=== PATIENT | male | born 1960 | race Caucasian/White ===

== ENCOUNTER 2019-10-15 05:01 | Observation (INO) ==
--- NOTE | 2019-10-09 14:27 | Anesthesiology Consultation ---
Date of Service October 09, 2019 Assessment & Plan (1) Encounter for pre-operative examination: PT REPORTED H/O "ANGER/AGGRESSION" WITH ANESTHESIA. COVID Status: As of 10/07 nurse assessment, patient denies travel to endemic area, known exposure/sick contacts, or symptoms of coronavirus. Pt lives in [facility] and travels to [facility] for shopping. Traveled to [facility] for [facility] 1 wk ago for work. Will be tested for Covid on 10/09. Chart Review Chart Review: Acceptable Risk for Surgery and Patient NOT seen in Pre Admission Testing History Surgery Operation Date: 10/15/19 09:00 Proposed Procedures p Left Total Hip Arthroplasty - Lc Agarwal MD Height/Weight Height: 6 ft 1 in Weight: 113.398 kg Allergies Allergy/AdvReac Type Severity Reaction Status Date / Time No Known Allergies Allergy Verified 10/08/19 10:07 Medications Home Medications Medication Instructions Recorded Confirmed Last Taken Fiber (psyllium husk) 1 cap PO QAM 10/08/19 10/08/19 Unknown atenolol 50 mg PO QAM 10/08/19 10/08/19 Unknown baclofen 10 mg PO TID PRN 10/08/19 10/08/19 Unknown fenofibrate micronized 200 mg PO QAM 10/08/19 10/08/19 Unknown omeprazole 40 mg PO QAM 10/08/19 10/08/19 Unknown oxycodone-acetaminophen [Percocet] 1 tab PO Q6H PRN 10/08/19 10/08/19 Unknown Past Medical History Medical History Constipated GERD (gastroesophageal reflux disease) History of colon polyps History of DVT (deep vein thrombosis) LLE - post op - 20 years ago - treated w/ AC History of kidney stones [place] (hard of hearing) HTN (hypertension) Hyperlipemia Osteoarthritis TMJ click Past Surgical History Surgical History History of anesthesia reaction anger, aggresssion History of ankle surgery Rt History of appendectomy History of arthroscopy of right shoulder History of bone graft History of cardiac catheterization 15 years ago - [facility] - no stents History of cervical spinal surgery restricted ROM rt side; hardware in place History of cholecystectomy History of colonoscopy History of cystoscopy w/ stone extraction History of esophagogastroduodenoscopy (EGD) History of lithotripsy History of sinus surgery History of tooth extraction Social History Smoking Status: Never smoker tobacco type: smokeless tobacco Do You Dip or Chew Tobacco: Yes (1 can per day) Hx Alcohol Use: Yes alcohol intake frequency: holidays/special occasions only Hx Substance Use: Yes substance use type: marijuana Last Used Substance Other:: 10/06 Testing Laboratory Results Blood Type B Positive 10/06/19 10:27 Antibody Screen NEGATIVE 10/06/19 10:27 10/06/19 WBC: 8.55 H/H: 14.8/42.1 PLATELETS: 175 SODIUM: 142 POTASSIUM: 3.9 CHLORIDE: 107 CO2: 31 BUN: 9 CREATININE: 1.02 GLUCOSE: 80 PT: 11 PTT: 26.3 INR: 1.0 UA: negative Electrocardiogram Date: 10/06/19 Findings: + SB @ (53bpm) Chest X-Ray Date: 10/06/19 Findings: + NAD
--- NOTE | 2019-10-13 07:45 | History & Physical Report ---
Date of Service October 13, 2019 Assessment & Plan (1) Degenerative joint disease of left hip: Approximately twenty minutes were spent with the patient reviewing operative procedure, postoperative recovery, physical therapy requirements and medication use. Postoperative prescriptions for Percocet and Coumadin will be provided at discharge from the hospital. Anticipate discharge to home with home health services. Preoperative lab work, EKG, and chest x-ray have been ordered. Medical clearance has been requested from his primary care office at [facility]. The patient is aware of the COVID-19 risks associated with surgery. He is currently asymptomatic of any COVID-19 symptoms. The patient will be scheduled for COVID nasal swab testing for Sunday and results will be made available to him prior to surgery. He already has access to a walker and cane. History of Present Illness Chief Complaint: Left hip pain Primary Care Provider: NO PCP This 59-year-old white male presents today with a longstanding history of bilateral hip pain, left greater than right for several years. Pain has become worse with time. He is scheduled to undergo a left hip total hip arthroplasty on 10/15/2019. Pain is affecting his ADLs. He has difficulty with standing as well as walking. No numbness or tingling. He notes he walks with a significant limp. There is night pain. No specific trauma that he can recall. No difficulty with bowel or bladder function. Allergies Allergy/AdvReac Type Severity Reaction Status Date / Time No Known Allergies Allergy Verified 10/08/19 10:07 Home Medications Home Medications Medication Instructions Recorded Confirmed Type Fiber (psyllium husk) 1 cap PO QAM 10/08/19 10/08/19 History atenolol 50 mg PO QAM 10/08/19 10/08/19 History baclofen 10 mg PO TID PRN 10/08/19 10/08/19 History fenofibrate micronized 200 mg PO QAM 10/08/19 10/08/19 History omeprazole 40 mg PO QAM 10/08/19 10/08/19 History oxycodone-acetaminophen [Percocet] 1 tab PO Q6H PRN 10/08/19 10/08/19 History Past Med/Surg History Medical History Constipated GERD (gastroesophageal reflux disease) History of colon polyps History of DVT (deep vein thrombosis) LLE - post op - 20 years ago - treated w/ AC History of kidney stones [place] (hard of hearing) HTN (hypertension) Hyperlipemia Osteoarthritis TMJ click Surgical History History of anesthesia reaction anger, aggresssion History of ankle surgery Rt History of appendectomy History of arthroscopy of right shoulder History of bone graft History of cardiac catheterization 15 years ago - [facility] - no stents History of cervical spinal surgery restricted ROM rt side; hardware in place History of cholecystectomy History of colonoscopy History of cystoscopy w/ stone extraction History of esophagogastroduodenoscopy (EGD) History of lithotripsy History of sinus surgery History of tooth extraction Social History Preferred Language: Khmer Communication Ability: Effective Railroad Carman Required: No Beliefs That Will Affect Care: None Current Living Situation: Spouse Feels Safe at Home: Yes Smoking Status: Never smoker Tobacco Type: smokeless tobacco ; Second Hand Exposure: Yes (previous exposure in the work place) ; Hx Alcohol Use: Yes Hx Substance Use: Yes substance use type: marijuana Review of Systems Review of Systems: All systems reviewed & are unremarkable except as noted in HPI & below Physical Exam Physical Exam: Vitals: Temperature 36.4 oral, BP 140/76, pulse 59, O2 sat 98% on room air, height 182 cm, weight 113 kilograms, BMI 34.1. General: Well-developed, well-nourished middle-aged white male in no acute distress. Obvious discomfort. Sitting on a bed. Alert and oriented. Looks older than his stated age. Skin: Warm and dry with good turgor. No rashes or lesions. No ecchymosis or erythema. No edema. HEENT: Normocephalic, atraumatic. Eyes: PERRLA, EOMI. Oropharynx and nares deferred due to COVID precautions. The patient is wearing a mask. Heart: RRR, no MGR. Lungs: Clear to auscultation bilaterally, no crackles, rhonchi or wheezing. Good air movement. Abdomen: Obese, bowel sounds present x4, soft, nontender. No organomegaly. No masses. Musculoskeletal: Left hip evaluation reveals no obvious asymmetry or deformity. He does get frequent spasm into his quadriceps musculature. He has limited range of motion of the hip. Flexion only to 90 degrees, external rotation of 20 degrees, internal rotation of 5 degrees, all limited by pain. No discomfort with palpation over his IT band or greater trochanter. The patient walks with a significantly antalgic gait. Left knee examination is benign. Good range of motion. No significant discomfort with palpation over the medial or lateral joint lines. Neurologic: Gross sensation is intact across both lower extremities by soft touch. Peripheral pulses are 2+. Results & Data Results & Data ([facility]) Diagnostic Findings Radiographic imaging obtained today shows end-stage DJD of the left hip. He has [id number] with subchondral sclerosis and subchondral cysts. Right hip has arthritic change with a Cam lesion, though not as severe as the left.
[2019-10-15] MEDS ORDERED: LR 60ML/HR IV SCH (06:00)
[2019-10-15] MEDS ORDERED: LR 500ML BOLUS, THEN 15ML/HR IV SCH (06:00)
[2019-10-15] MEDS ORDERED: TRANEXAMIC ACID 1,000 MG x 1 **For Topical Use TOP SCH (06:00)
[2019-10-15] MEDS ORDERED: ROPIVACAINE 0.5% HCL/PF 150 MG, BUPIVACAINE 0.5% MPF 30 ML, EPINEPHrine 0.15 MG, Ketoro... INFIL SCH (06:00)
[2019-10-15] MEDS ORDERED: CEFAZOLIN 2000MG 2,000 MG/15 ML SYR IV SCH (06:00)
[2019-10-15] MEDS ORDERED: BUPIVACAINE 0.5 % 5 MG/1 ML PF 10ML VIAL ONE (06:14)
--- NOTE | 2019-10-15 06:22 | History & Physical Bridge Note ---
Date of Service October 15, 2019 History & Physical Bridge Note I have examined the patient, reviewed the History & Physical and in the interval since the performance of the History & Physical I have noted the following changes of clinical significance: consent obtained/covid screening negative/site marked.no changes noted
[2019-10-15] MEDS ORDERED: ORTHO JOINT ANESTHETIC ONE (06:33)
[2019-10-15] MEDS ORDERED: MIDAZOLAM HCL 1 MG/ML 2ML VIAL ONE ×2 (06:38→07:02)
[2019-10-15] MEDS ORDERED: PROPOFOL IV EMULSION 10 MG/ML 20 ML VIAL IV ONE ×2 (06:38→07:36)
[2019-10-15] MEDS ORDERED: fentaNYL citrate 100 MCG/2 ML VIAL ONE (06:38)
[2019-10-15] MEDS ORDERED: LIDOCAINE HCL 2% 2 ML VIAL/AMP(20MG/ML) INFIL ONE (06:38)
[2019-10-15] MEDS ORDERED: ONDANSETRON INJ 2 MG/ML 2 ML VIAL ONE (07:10)
[2019-10-15] MEDS ORDERED: ePHEDrine sulfate 50 MG/ML SYR ONE (07:37)
--- NOTE | 2019-10-15 08:24 | Post Operative Brief Note ---
Immediate Post Op Note v1 Date of Surgery October 15, 2019 Pre & Post Diagnosis Operation Date: 10/15/19 07:00 Pre-Op Diagnosis: Left Hip Degenerative Joint Disease Post-Op Diagnosis: Left Hip Degenerative Joint Disease I identified the patient and participated in the time-out.: Yes Procedure Operation Date: 10/15/19 07:00 Actual Procedures p Left Total Hip Arthroplasty--Uncemented(Left) - Lc Agarwal MD Surgeon Lc Agarwal MD Business Analytics Manager [facility] Est[facility] Blood Loss 175 Findings Consistent with Post-Op Diagnosis
--- NOTE | 2019-10-15 08:33 | Operative Report ---
Post Operative Report Pre & Post Diagnosis Operation Date: 10/15/19 07:00 Pre-Op Diagnosis: Left Hip Degenerative Joint Disease Post-Op Diagnosis: Left Hip Degenerative Joint Disease I identified the patient and participated in the time-out.: Yes Procedure Operation Date: 10/15/19 07:00 Actual Procedures p Left Total Hip Arthroplasty--Uncemented(Left) - Lc Agarwal MD Surgeon VAZQUEZ Agarwal MD Tobacco Sweeper krishna Estimated Blood Loss 175 Findings Consistent with Post-Op Diagnosis Specimens see operative report Drains none Complications none Disposition Accompanied Patient To Recovery: Yes Disposition: Recovery Room Indications This 59-year-old white male presented to the office with complaints of intractable left hip pain. He had tried conservative care measures without improvement. Patient elected to proceed with surgical intervention after being educated about potential risks and outcomes. Preoperative imaging was obtained. Description of Procedure Patient was administered a spinal anesthetic and then taken to the operating room where he was given sedation. He was prepped and draped in the usual st erile fashion. Please see Dr. Agarwal's operative report for specifics of the procedure. I was present for the entire case from initial patient positioning through final wound closure. Assistance was provided in tissue retraction, hemostasis, trial implant placement, final implant placement, and final wound closure. Patient was taken to the recovery room in satisfactory condition. I attest to the content of the Intraoperative Record and any orders documented therein. Any exceptions are noted below.
--- NOTE | 2019-10-15 09:10 | XRay Report ---
XR pelvis 1-2V routine HISTORY: 59 years-old Male post op in pacu left hip total joint arthroplasty COMPARISON: Pelvis radiograph 10/06/2019 TECHNIQUE: AP view of the pelvis FINDINGS: Left hip total joint arthroplasty demonstrates satisfactory alignment. No acute fracture, dislocation or opaque foreign body. Lateral skin argelia. Expected postsurgical soft tissue swelling and deep ti ssue air. Surgical clips project over the scrotum. Mild to moderate right hip osteoarthritis. IMPRESSION: Satisfactory alignment of the left hip total joint arthroplasty. ACT 112: Negative or not required by law. The above report was generated using voice recognition software. It may contain grammatical, syntax o r spelling errors. Electronically signed by: Michel Jacques M.D. 10/15/2019 9:08 AM
--- NOTE | 2019-10-15 09:19 | Operative Report (OR) ---
DATE OF OPERATION: 10/15/2019 SURGEON: Lc Agarwal MD. TAP AND DIE MAKER TECHNICIAN: Rasheed Husain PA-C. No resident or fellow available. PREOPERATIVE DIAGNOSIS: Osteoarthritis, left hip. POSTOPERATIVE DIAGNOSIS: Same. OPERATION PERFORMED: Noncemented left total hip replacement. PERIOPERATIVE SITUATION: Medically cleared male with intractable hip pain, who has x-rays revealing severe disease. Wants to proceed with surgical treatment. Consent obtained. All risks and benefits identified. He states he understands. SUMMARY OF IMPLANTS: Size 50 acetabular shell sector cup hole eliminator, 6.5 x 20 screw, 32 x 50+4 10 degree lipped liner, 7 high offset Tri-Lock 32+9 ceramic head. ESTIMATED BLOOD LOSS: 175 mL PATHOLOGY: Pending on bone. DVT prophylaxis with Eliquis based on history of DVT. DESCRIPTION OF PROCEDURE: The patient appropriately identified, site verified, consent verified. Antibiotics confirmed as being given. The left lower extremity was prepped and draped in usual routine fashion with the patient in the right lateral decubitus position. A posterior approach to the hip was made. Sharp dissection carried through skin and blunt dissection down to the fascia. IT band then identified, split and extended up into the gluteus juancho. A Charnley retractor was then placed, with care to protect the sciatic nerve. Short external rotators were released and preserved the capsule was T'd and preserved. The hip was dislocated. Femoral neck was resected. There was marked deformity to the head, marked deformity of the labrum. Marked deformity to the acetabulum, marked osteophytes. These were all resected and debrided and serial reaming carried up to a 50 to a 50 cup impacted into appropriate inclination and anteversion. Osteophytes resected. A +4 10 degree lipped liner seated as it had given the most stability. The femur was then flexed and internally rotated. The box cut, canal finder, lateralizing rasp, and serial broaching up to a size 7 was carried out. A +9 head gave the best leg lengths and stability. All trial implants were then removed. The wound was irrigated with Betadine, Pulsavac, hole eliminator seated, permanent liner seated, permanent head and stem seated. The hip reduced. It was stable in all planes with the exception of flexion to 90 degrees, internal rotation to 40 degrees and it started to slide there. Otherwise, it was perfectly stable. Postural indiscretion should not be obtained or done. As a result, it was deemed acceptable and in excellent position. Leg lengths were excellent. The wound irrigated with Betadine. The short external rotators and capsule closed with #2 Vicryl. The IT band fascia and gluteus juancho fascia with #2 Vicryl, the subcutaneous layer with 2-0 Vicryl and the skin with stainless steel clips. Appropriate dressing applied. The patient transferred to recovery room in satisfactory condition having tolerated the procedure well. I attest to the content of the Intraoperative Record and any orders documented therein. Any exception s are noted below.
[2019-10-15] MEDS ORDERED: BACLOFEN 10 MG TAB PO PRN (09:52)
[2019-10-15] MEDS ORDERED: METOCLOPRAMIDE HCL INJ 5 MG/ML 2 ML VIAL IV PRN (09:52)
[2019-10-15] MEDS ORDERED: ALUMINUM/MAGNESIUM SUSP 30 ML UDC PO PRN (09:52)
[2019-10-15] MEDS ORDERED: SODIUM CHLORIDE 0.9% 1000ML 1,000 ML IV SCH (09:52)
[2019-10-15] MEDS ORDERED: NALOXONE HCL 0.4 MG/1 ML VIAL/CARP IV PRN (09:52)
[2019-10-15] MEDS ORDERED: bisacodyL 10 MG SUPP PR PRN (09:52)
[2019-10-15] MEDS ORDERED: TAMSULOSIN HCL 0.4 MG CAP PO PRN (09:52)
[2019-10-15] MEDS ORDERED: DiphenhydrAMINE HCL 50 MG/ML VIAL IV PRN (09:52)
[2019-10-15] MEDS ORDERED: MAGNESIUM HYDROXIDE SUSP 30 ML UDC PO PRN (09:52)
--- NOTE | 2019-10-15 11:12 | Progress Notes ---
DATE: 10/15/2019 SUBJECTIVE: Postop check status post left total hip replacement. The patient is doing well, sitting up in bed, has no chest pain, shortness of breath, fever, chills, nausea, vomiting or headache. OBJECTIVE: Vital signs are stable. He is afebrile. Neurovascular check is still limited by the spinal, starting to roll his legs. Wound dressing clean, dry and intact. Hip is located. X-rays reveal excellent implant positioning. ASSESSMENT: Doing well. Continue with postoperative care pathway, mobilize today and prepare for discharge tomorrow.
--- NOTE | 2019-10-15 11:12 | Discharge Summary (DS) ---
DATE OF DISCHARGE: 10/16/2019 CHIEF COMPLAINT: Left hip pain. HISTORY OF PRESENT ILLNESS: Underwent elective left total hip procedure. Had total hip replacement, noncemented. The procedure went uneventfully. Postop x-rays look excellent. At this point in time, he is doing well. PAST MEDICAL HISTORY: Remarkable for constipation, GERD, colonic polyps, DVT with lower extremity surgery 20 years ago, history of kidney stones, hearing loss, hypertension, hyperlipidemia, osteoarthritis, TMJ pain. PAST SURGICAL HISTORY: Remarkable for ankle surgery, appendectomy, right shoulder arthroscopy, cardiac catheterization, spinal surgery, cholecystectomy, colonoscopy, cystoscopies, EGD, lithotripsy, sinus tooth surgery, tooth extraction. SOCIAL HISTORY: Reveals that he is , speaks Bulgarian. Social drinking. He uses marijuana. Smokeless tobacco. Secondhand exposure. REVIEW OF SYSTEMS: Noncontributory. Hospital course to date has been uneventful. ASSESSMENT: Doing well status post left total hip replacement. Continue with postop care pathway. Discharge tomorrow a.m.
[2019-10-15] MEDS: MULTIVITAMIN TAB PO SCH (11:17)
[2019-10-15] MEDS: DOCUSATE SODIUM 100 MG CAP PO SCH ×2 (11:17→21:19)
[2019-10-15] MEDS: ATENOLOL 50 MG TABLET PO SCH (11:19)
--- NOTE | 2019-10-15 12:07 | Anesthesiology Progress Note ---
Date of Service October 15, 2019 Anesthesia Post Procedure Vital Signs Vital Signs: Temp Pulse Pulse Resp BP Pulse Ox 10/15/19 11:34 36.6 C 57 L 16 97/64 L 97 10/15/19 10:28 59 L 16 109/68 98 10/15/19 10:02 36.5 C 67 18 115/71 97 10/15/19 09:35 36.8 C 59 L 16 102/61 95 10/15/19 09:20 36.7 C 61 18 103/69 94 10/15/19 09:10 61 12 104/65 94 10/15/19 09:00 36.7 C 67 14 109/66 96 10/15/19 08:50 62 12 101/63 96 10/15/19 08:40 66 18 97/64 L 100 10/15/19 08:32 37.4 C 60 17 95/63 L 100 10/15/19 05:38 36.7 C 58 L 16 163/92 H 97 Pain Intensity Left Hip: Pain Intensity: 0 Transfer of Care Handoff Completed per policy Notes Mental Status: alert / awake / arousable and participated in evaluation Patient Amnestic to Procedure: Yes Nausea / Vomiting: adequately controlled Pain: adequately controlled Airway Patency, RR, SpO2: stable & adequate BP & HR: stable & adequate Hydration State: stable & adequate Neuraxial Anesthesia: was administered and sensory block is resolving Anesthetic Complications: no major complications apparent
[2019-10-15] MEDS: KETOROLAC 30 MG/ML VIAL IV SCH ×3 (12:24→23:32)
[2019-10-15] MEDS: OXYCODONE HCL IR 5 MG TAB (IMMEDIATE RELEASE) PO PRN ×3 (13:11→21:20)
[2019-10-15] MEDS: ACETAMINOPHEN 500 MG TAB PO SCH ×2 (13:53→21:20)
[2019-10-15] MEDS: CEFAZOLIN 2000MG 2,000 MG/15 ML SYR IV SCH ×2 (14:25→22:13)
[2019-10-15] MEDS: HYDROmorphone INJ 0.5 MG/0.5 ML SYR IV PRN ×2 (14:25→19:05)
[2019-10-15] MEDS: FERROUS GLUCONATE 324 MG TAB PO SCH (16:56)
[2019-10-15] MEDS: ASCORBIC ACID 500 MG TAB PO SCH (16:56)
[2019-10-15] MEDS ORDERED: SENNA 8.6 MG TAB PO SCH (21:00)
[2019-10-15] MEDS: ONDANSETRON INJ 2 MG/ML 2 ML VIAL IV PRN (21:46)
[2019-10-16 05:49] LABS: Basophils # (auto) 0.01 K/uL (0-0.2); Basophils % (auto) 0.1 %; Eosinophils # (auto) 0.05 K/uL (0-0.5); Eosinophils % (auto) 0.6 %; Hematocrit (blood only) 32.2 % (42-52); Hemoglobin 11.1 g/dL (14.0-18.0); Immature Granulocytes # (auto) 0.01 K/uL (0.00-0.02); Immature Granulocytes % (auto) 0.1 %; Lymphocytes % (auto) 13.3 %; Mean Corpuscular Hemoglobin 29.4 pg (25-34); Mean Corpuscular Hgb Conc 34.5 g/dL (32-36); Mean Corpuscular Volume 85.2 fL (80-100); Mean Platelet Volume 10.5 fL (7.4-10.4); Monocytes # (auto) 0.91 K/uL (0.11-0.59); Neutrophils # (auto) 6.16 K/uL (1.4-6.5); Neutrophils % (auto) 74.9 %; Platelet Count 135 K/uL (130-400); RDW Coefficient of Variation 14.1 % (11.5-14.5); RDW Standard Deviation 43.3 fL (36.4-46.3); Red Blood Count 3.78 M/uL (4.7-6.1); White Blood Count 8.24 K/uL (4.8-10.8)
[2019-10-16] MEDS: KETOROLAC 30 MG/ML VIAL IV SCH (05:58)
[2019-10-16] MEDS: ACETAMINOPHEN 500 MG TAB PO SCH (05:58)
[2019-10-16 06:14] LABS: BUN Creatinine Ratio 12.5 (10-20); Calcium 8.4 mg/dl (8.5-10.1); Creatinine Clr Calc Pharmacy 103.9 ml/min; Est GFR (African American) 94.1; Est GFR (Non-African American) 81.2; Potassium 4.2 mmol/L (3.5-5.1)
--- NOTE | 2019-10-16 07:19 | Progress Notes ---
DATE: 10/16/2019 SUBJECTIVE: Postop day #1 status post left total hip replacement. The patient is doing well. He is sitting up in bed. He denies any chest pain, shortness of breath, fever, chills, nausea, vomiting or headache. OBJECTIVE: His vital signs are stable. He is afebrile. Neurovascular check femoral sciatic nerve is normal. Wound dressing clean, dry and intact. Pain is well managed. He is ambulating. He is voiding. He is eating and drinking. ASSESSMENT: Doing well status post left total hip replacement. Discharge today. He will be on Eliquis.
[2019-10-16] MEDS ORDERED: dexAMETHasone 10 MG in SYRINGE 0 ML IV SCH (08:00)
--- NOTE | 2019-10-16 08:18 | Anesthesiology Progress Note ---
Date of Service October 16, 2019 Anesthesia Post Procedure Vital Signs Vital Signs: Temp Pulse Pulse Resp BP BP Pulse Ox 10/16/19 07:49 36.9 C 64 16 101/67 96 10/16/19 04:00 36.9 C 67 14 100/59 L 95 10/15/19 23:21 36.9 C 64 14 103/64 96 10/15/19 15:07 36.9 C 70 17 99/68 L 98 10/15/19 13:56 36.6 C 70 18 115/71 98 10/15/19 12:35 36.6 C 66 18 104/62 98 10/15/19 11:34 36.6 C 57 L 16 97/64 L 97 10/15/19 10:28 59 L 16 109/68 98 10/15/19 10:02 36.5 C 67 18 115/71 97 10/15/19 09:35 36.8 C 59 L 16 102/61 95 10/15/19 09:20 36.7 C 61 18 103/69 94 10/15/19 09:10 61 12 104/65 94 10/15/19 09:00 36.7 C 67 14 109/66 96 10/15/19 08:50 62 12 101/63 96 10/15/19 08:40 66 18 97/64 L 100 10/15/19 08:32 37.4 C 60 17 95/63 L 100 Pain Intensity Left Hip: Pain Intensity: 7 Notes Mental Status: alert / awake / arousable and participated in evaluation Nausea / Vomiting: adequately controlled Pain: adequately controlled Airway Patency, RR, SpO2: stable & adequate BP & HR: stable & adequate Hydration State: stable & adequate Neuraxial Anesthesia: sensory block resolved Anesthetic Complications: no major complications apparent
[2019-10-16] MEDS: MULTIVITAMIN TAB PO SCH (08:28)
[2019-10-16] MEDS: FERROUS GLUCONATE 324 MG TAB PO SCH (08:29)
[2019-10-16] MEDS: DOCUSATE SODIUM 100 MG CAP PO SCH (08:29)
[2019-10-16] MEDS: ASCORBIC ACID 500 MG TAB PO SCH (08:29)
[2019-10-16] MEDS: ATENOLOL 50 MG TABLET PO SCH (08:35)
[2019-10-16] MEDS ORDERED: PANTOprazole 40 MG TAB PO SCH (09:00)
[2019-10-16] MEDS ORDERED: APIXABAN 5 MG TABLET PO SCH (09:00)
--- NOTE | 2019-10-16 09:09 | Orthopedic Progress Note ---
Date of Service October 16, 2019 Assessment & Plan (1) Status post total hip replacement, left: PT/OT today. Start Eliquis this morning and continue twice daily for 6 weeks Anticipate discharge to home with home health services later this morning Dressings were changed today by me. New pressure dressing was applied. Follow-up in the office in 2 weeks for staple removal as scheduled. He may shower but must keep the dressings dry. Continue using his walker when ambulatory. Patient was offered antinausea medication for home, but declined. Prescription for Eliquis has been sent to his pharmacy. He states he already has Percocet at home for chronic pain management. Admission and Anticipated Discharge Date Admission Date: October 15, 2019 Subjective Patient is seen in his room this morning. He is sitting in a chair. States he did well overnight. He currently states he is nauseated and is belching. He did have a light breakfast, but states it is not sitting well. He states he has not had any pain medication since last night. He did not take any antinausea medication this morning. No chest pain, shortness of breath, abdominal pain, or significant hip pain. He has not vomited. Physical therapy is waiting to see him momentarily. Review of Systems Review of Systems: Unchanged from yesterday Physical Exam Physical Exam: General: Well-developed, well-nourished, middle-aged white male, in no acute distress. Sitting in a chair. Alert and oriented. Conversive. States he is a little nauseated and is belching periodically. Skin: Warm and dry with good turgor. Postoperative dressing is in place. Upon removal, he has minimal drainage on his dressings. No active drainage from the wound. Marshes Siding are in place. Musculoskeletal: Patient has supple motion of his left hip. He ambulates well using his walker. Intact motor function for hip flexion, knee extension, knee flexion, and ankle motion. Neurologic: Gross sensation is intact across the left lower extremity by soft touch. Peripheral pulses are 2+. Results & Data ([facility]) Vital Signs (Past 12 Hours) Vital Signs Temp Pulse Pulse Resp BP BP Pulse Ox 10/16/19 08:35 69 106/66 94 10/16/19 07:49 36.9 C 64 16 101/67 96 10/16/19 04:00 36.9 C 67 14 100/59 L 95 10/15/19 23:21 36.9 C 64 14 103/64 96 Laboratory Results H&H obtained this morning is 11.1 and 32.2. WBCs are 8.2. PRP is unremarkable.
[2019-10-16] MEDS: ONDANSETRON INJ 2 MG/ML 2 ML VIAL IV PRN (09:15)
== END 2019-10-16 11:36 | disposition home or self-care (01) ==
LOC: ASU 05:01 → 3E 08:38 → INTOOBSV 08:38

== ENCOUNTER 2020-09-29 06:30 | Observation (INO) ==
--- NOTE | 2020-09-02 11:27 | PAT Medication Instructions ---
Medication Instructions Date of Service September 02, 2020 Home Medications atenolol 50 mg PO QAM baclofen 10 mg PO TID PRN fenofibrate micronized 200 mg PO QAM omeprazole 40 mg PO QAM oxycodone-acetaminophen [Percocet] 1 tab PO Q6H PRN psyllium husk [Fiber (psyllium husk)] 0.12 g PO BID STOP taking 48 hours before surgery fenofibrate micronized 200 mg PO QAM DO NOT take the morning of surgery baclofen 10 mg PO TID PRN psyllium husk [Fiber (psyllium husk)] 0.12 g PO BID Take morning of surgery With a small sip of water, OTHERWISE NOTHING TO EAT OR DRINK AFTER MIDNIGHT: atenolol 50 mg PO QAM omeprazole 40 mg PO QAM oxycodone-acetaminophen [Percocet] 1 tab PO Q6H PRN (okay to take up to 4 hours prior to surgery if needed) Take evening before surgery baclofen 10 mg PO TID PRN (if needed) oxycodone-acetaminophen [Percocet] 1 tab PO Q6H PRN (if needed) psyllium husk [Fiber (psyllium husk)] 0.12 g PO BID Other Notes If you have any questions please call us at [phone] or [phone] or [phone] or [phone]
--- NOTE | 2020-09-06 14:11 | Anesthesiology Consultation ---
Date of Service September 06, 2020 Assessment & Plan (1) Encounter for pre-operative examination: Chart Review Chart Review: Acceptable Risk for Surgery (pending surgeon ordered PCP clearance ) and Patient seen in Pre Admission Testing Awaiting surgeon ordered PCP clearance (pt setting up appt) Per PAT appt on 09/06/20, pt resides in [facility]. Traveled to [place], [place] on 09/01/20 for medical appt. No known Covid positive contacts or Covid related symptoms. Pt denies known Covid infection in the past 90 days. Did have Covid infection 03/17/20 (had sinus pain and drainage- symptoms have since resolved). Preop Covid testing scheduled 09/23/20= will await results. Educated on importance of self quarantining, social distancing and wearing mask in public both for the patient and household contacts. Left TEDDY 10/15/19= Done under SAB at L3-4 with 1 attempt. History Surgery Operation Date: 09/29/20 09:15 Proposed Procedures p Right Total Hip Arthroplasty - Lc Agarwal MD Height/Weight Height: 6 ft 1 in Weight: 122.7 kg Allergies Allergy/AdvReac Type Severity Reaction Status Date / Time No Known Allergies Allergy Verified 09/01/20 08:55 Medications Home Medications Medication Instructions Recorded Confirmed Last Taken atenolol 50 mg PO QAM 10/08/19 09/01/20 10/15/19 02:00 baclofen 10 mg PO TID PRN 10/08/19 09/01/20 10/15/19 02:00 fenofibrate micronized 200 mg PO QAM 10/08/19 09/01/20 10/12/19 07:00 omeprazole 40 mg PO QAM 10/08/19 09/01/20 10/15/19 02:00 oxycodone-acetaminophen [Percocet] 1 tab PO Q6H PRN 10/08/19 09/01/20 10/15/19 02:00 psyllium husk [Fiber (psyllium 0.12 g PO BID 01/07/20 09/01/20 Unknown husk)] Past Medical History Medical History GERD (gastroesophageal reflux disease) Well controlled and stable History of COVID-19 03/17/20- no residual symptoms History of DVT (deep vein thrombosis) LLE - post op - 20 years ago - treated w/ AC x 2-3 years then d/c'ed AC- no issues since that time History of kidney stones No current issues [place] (hard of hearing) No hearing aids HTN (hypertension) Hyperlipemia TMJ click never locked Exercise / Class Metabolic Activity II 4-5 Yardwork/Stairs/Walk up hill (one flight of stairs - no chest pain or SOB ) Past Family History Family History Other No family history of adverse response to anesthesia Past Surgical History Surgical History History of anesthesia reaction anger, aggression > happened x1 History of ankle surgery Rt History of appendectomy History of arthroscopy of right shoulder History of bone graft several yrs ago History of cardiac catheterization 15 years ago - [facility] - no stents History of cervical spinal surgery restricted ROM rt side; hardware in place History of cholecystectomy History of colonoscopy History of cystoscopy w/ stone extraction History of esophagogastroduodenoscopy (EGD) History of left hip replacement 10/15/2019 [facility] History of lithotripsy History of repair of rotator cuff right History of sinus surgery History of tooth extraction Hx of decompression of ulnar nerve bilat Past Anesthesia History No Hx of Anesthesia Complications (with exception to getting angry post op ) and No Family Hx of Anesthesia Complications History of PONV No Hx of PONV and No Hx of Motion Sickness Social History Smoking Status: Never smoker tobacco type: smokeless tobacco Do You Dip or Chew Tobacco: Yes (1 can per 1.5 day) Hx Alcohol Use: No alcohol intake frequency: holidays/special occasions only Hx Substance Use: Yes substance use type: marijuana Substance Use Type Other:: cbd oil > pain Last Used Substance Other:: 11/11/19 Review of Systems Mild cough- secondary to post nasal drip- feels secondary to allergies Patient denies chest pain, shortness of breath, dyspnea on exertion, wheezing, palpitations. No hx of seizures, stroke, [place], apnea/snoring. No hx of blood transfusions Physical Exam Vital Signs VITALS BP 122/72 P 70 TEMP 98.5 SP02 96% RESP 16 Constitutional no acute distress ENMT Mouth: no TMJ clicking Thyromental Distance: > or= 3.5 Finger Breadths (3.5) Mallampati Class: I Missing all teeth Posts in place for full upper and lower implants (will not put implants in for AM of surgery) Neck + limited neck extension (mild ) Limited neck movement to the right with pain Respiratory normal respiratory effort; no respiratory distress Auscultation: lungs clear to auscultation bilaterally; no wheezes Cardiovascular Rate/Rhythm: regular rate and regular rhythm Heart Sounds: no murmur Vessels: no carotid bruit Musculoskeletal Spine: no pain with cervical ROM Extremities: extremities normal to inspection Psychiatric Orientation: alert Testing Laboratory Results 09/06/20 14:29 09/06/20 14:29 PT 10.3 Seconds (9.0-12.0) 09/06/20 14: INR 1.0 (0.9-1.1) 09/06/20 14: APTT 23.4 Seconds (21.0-31.0) 09/06/20 14:29 Urine Color Yellow 09/06/20 14:13 Urine Appearance Clear (Clear) 09/06/20 14:13 Urine pH 7.5 (4.5-7.5) 09/06/20 14:13 Ur Specific Simon 1.014 (1.000-1.030) 09/06/20 14:13 Urine Protein Negative (Negative) 09/06/20 14:13 Urine Glucose (UA) Negative (Negative) 09/06/20 14:13 Urine Ketones Negative (Negative) 09/06/20 14:13 Urine Nitrite Negative (Negative) 09/06/20 14:13 Ur Leukocyte Esterase Negative (Negative) 09/06/20 14:13 Blood Type B Positive 09/06/20 14:29 Antibody Screen NEGATIVE 09/06/20 14:29 Electrocardiogram Date: 09/06/20 Findings: + SB @ (57bpm) Otherwise normal EKG per cardio. Chest X-Ray Date: 09/06/20 Findings: + NAD
--- NOTE | 2020-09-06 14:47 | Electrocardiogram Report ---
Test Reason : Blood Pressure : / mmHG Vent. Rate : 057 BPM Atrial Rate : 057 BPM P-R Int : 192 ms QRS Dur : 096 ms QT Int : 402 ms P-R-T Axes : 027 051 028 degrees QTc Int : 391 ms Sinus bradycardia Otherwise normal ECG When compared with ECG of 06-OCT-2019 11:09, No significant change was found Confirmed by Jameson Ponce ([id number]) on 09/06/2020 2:47:06 PM Referred By: Lc Agarwal Confirmed By:Jameson Ponce
--- NOTE | 2020-09-06 14:55 | XRay Report ---
XR chest Pre-admission PA/Lat HISTORY: 60 years-old Male pat chronic degenerative joint disease of the left hip COMPARISON: Chest radiograph 10/06/2019 TECHNIQUE: PA and lateral views of the chest FINDINGS: Cardiomediastinal and hilar silhouettes are within normal limits. No pneumothorax, pleural effusion, airspace consolidation or overt pulmonary edema. Degenerative changes of the shoulders and spine. Cho lecystectomy. Cervical spinal fusion hardware. IMPRESSION: No acute process. ACT 112: Negative or not required by law. The above report was generated using voice recognition software. It may contain grammatical, syntax o r spelling errors. Electronically signed by: Michel Jacques M.D. 09/06/2020 2:53 PM
[2020-09-06 14:57] LABS: Basophils # (auto) 0.03 K/uL (0-0.2); Basophils % (auto) 0.4 %; Eosinophils # (auto) 0.19 K/uL (0-0.5); Eosinophils % (auto) 2.4 %; Hematocrit (blood only) 41.3 % (42-52); Hemoglobin 14.7 g/dL (14.0-18.0); Immature Granulocytes # (auto) 0.02 K/uL (0.00-0.02); Immature Granulocytes % (auto) 0.3 %; Lymphocytes # (auto) 1.61 K/uL (1.2-3.4); Lymphocytes % (auto) 20.6 %; Mean Corpuscular Hemoglobin 29.6 pg (25-34); Mean Corpuscular Hgb Conc 35.6 g/dL (32-36); Mean Corpuscular Volume 83.3 fL (80-100); Monocytes % (auto) 10.3 %; Neutrophils # (auto) 5.15 K/uL (1.4-6.5); Platelet Count 192 K/uL (130-400); RDW Coefficient of Variation 14.2 % (11.5-14.5); RDW Standard Deviation 43.2 fL (36.4-46.3); Red Blood Count 4.96 M/uL (4.7-6.1)
[2020-09-06 14:59] LABS: Appearance Urine Clear (Clear); Bilirubin Urine Negative (Negative); Blood Urine Negative (Negative); Color Urine Yellow; Glucose Urine UA Negative (Negative); Ketones Urine Negative (Negative); Leukocyte Esterase Urine Negative (Negative); Nitrite Urine Negative (Negative); Protein Urine Negative (Negative); Specific Gravity Urine 1.014 (1.000-1.030); Urobilinogen Urine Negative (Negative); pH Urine 7.5 (4.5-7.5)
[2020-09-06 15:02] LABS: BUN Creatinine Ratio 7.7 (10-20); Calcium 9.4 mg/dl (8.5-10.1); Creatinine Clr Calc Pharmacy 115.1 ml/min; Est GFR (African American) 100.6; Est GFR (Non-African American) 86.8; Potassium 4.3 mmol/L (3.5-5.1)
[2020-09-06 15:20] LABS: Partial Thromboplastin Ratio 0.9; Partial Thromboplastin Time 23.4 Seconds (21.0-31.0); Prothrombin Time 10.3 Seconds (9.0-12.0)
--- NOTE | 2020-09-11 09:13 | History & Physical Report ---
Date of Service September 11, 2020 Assessment & Plan (1) Degenerative joint disease of right hip: Postoperative prescriptions for Percocet and Coumadin will be provided at discharge from the hospital. Anticipate discharge to home with home health services. Preoperative lab work, EKG, and chest x-ray have been reordered. The patient is seeing PAT today. He is aware of the COVID-19 risks associated with surgery. He is currently asymptomatic of any COVID-19 symptoms. He will obtain COVID-19 nasal swab testing 1 week prior to surgery. He has access to a walker and cane. PDMP was checked and no concerning findings were noted. He is aware that he will stay only 1 night in the hospital. History of Present Illness Chief Complaint: Right hip pain Primary Care Provider: Gigi Wolff This 60-year-old male presents for his preoperative history and physical. He is scheduled to undergo a right total hip arthroplasty on 09/29/2020. He was previously scheduled for this procedure on 01/28/2020 as well as 03/24/2020. The first procedure was canceled due to COVID exposure and the second one was canceled due to a rise in COVID cases within the hospital. The patient previously had a left total hip arthroplasty on 10/15/2019 and has done well with it. He elects to proceed with the same on the right. He denies any numbness or tingling in the right leg. Pain is affecting his ADLs. He points to the anterior flexion crease as well as across his iliac crest as the area of discomfort. Pain is worse with standing as well as walking. He walks with a noticeable limp due to his hip pain. He does have night pain. No specific trauma to the hip that he can recall. No difficulty with bowel or bladder function. He does have difficulty with ADLs, and symptoms are worse with weightbearing. Preoperative imaging has been obtained. Allergies Allergy/AdvReac Type Severity Reaction Status Date / Time No Known Allergies Allergy Verified 09/01/20 08:55 Home Medications Medication Instructions Recorded Confirmed Type atenolol 50 mg PO QAM 10/08/19 09/01/20 History baclofen 10 mg PO TID PRN 10/08/19 09/01/20 History fenofibrate micronized 200 mg PO QAM 10/08/19 09/01/20 History omeprazole 40 mg PO QAM 10/08/19 09/01/20 History oxycodone-acetaminophen [Percocet] 1 tab PO Q6H PRN 10/08/19 09/01/20 History psyllium husk [Fiber (psyllium 0.12 g PO BID 01/07/20 09/01/20 History husk)] Past Med/Surg History Medical History GERD (gastroesophageal reflux disease) Well controlled and stable History of COVID-19 03/17/20- no residual symptoms History of DVT (deep vein thrombosis) LLE - post op - 20 years ago - treated w/ AC x 2-3 years then d/c'ed AC- no issues since that time History of kidney stones No current issues [place] (hard of hearing) No hearing aids HTN (hypertension) Hyperlipemia TMJ click never locked Surgical History History of anesthesia reaction anger, aggression > happened x1 History of ankle surgery Rt History of appendectomy History of arthroscopy of right shoulder History of bone graft several yrs ago History of cardiac catheterization 15 years ago - [facility] - no stents History of cervical spinal surgery restricted ROM rt side; hardware in place History of cholecystectomy History of colonoscopy History of cystoscopy w/ stone extraction History of esophagogastroduodenoscopy (EGD) History of left hip replacement 10/15/2019 [facility] History of lithotripsy History of repair of rotator cuff right History of sinus surgery History of tooth extraction Hx of decompression of ulnar nerve bilat Family History (Updated 09/11/20 @ 09:10 by Rasheed Husain PA-C) Other Heart disease No family history of adverse response to anesthesia Stroke Social History Smoking Status: Never smoker Tobacco Type: Smokeless Tobacco (Dip or Chew) Second Hand Exposure: No; Do You Dip or Chew Tobacco: Yes (1 can per 1.5 day); Tobacco Cessation Education Requested by Patient: No Hx Alcohol Use: No Hx Substance Use: Yes Prescribed Medications: Marijuana Last Used Substance Other:: 11/11/19 Substance Use Type Other:: cbd oil > pain Preferred Language: Divehi Communication Ability: Effective Distance Learning Administrator Required: No Beliefs That Will Affect Care: None Current Living Situation: Spouse Other Information That Helps Us Care for You: No Feels Safe at Home: Yes Safety Concerns: Feels Safe At This Time Assistive Devices: Denture - Upper and Glasses Review of Systems Review of Systems: All systems reviewed & are unremarkable except as noted in HPI & below A total of 10 systems were reviewed. Physical Exam Physical Exam: Vitals: Height 183 cm, weight 112 kg, BMI 33.4, temperature 36.6, BP 130/90, pulse 66, O2 sat 98% on room air. General: Well-developed, well-nourished middle-aged white male in no acute distress. Sitting in a chair. Alert and oriented. Skin: Warm and dry with good turgor. No rashes or lesions. No ecchymosis or erythema. Scar present on his lumbar spine. HEENT: Normocephalic, atraumatic. Eyes: PERRLA. EOMI. Or opharynx and nares exams deferred due to COVID precautions. He does have dentures. Heart: RRR, no MGR. Lungs: Clear to auscultation bilaterally; no crackles, rhonchi or wheezing; good air movement. Abdomen: Obese; bowel sounds present x4; soft, nontender. No organomegaly. No masses. Musculoskeletal: Right hip evaluation reveals no obvious asymmetry or deformity. There is noticeable limitation in range of motion. Flexion to just greater than 90 degrees before onset of pain. External rotation continues to be around 10-15 degrees and internal rotation of only around 5 degrees, limited by pain. There is no discomfort with palpation of the IT band or greater trochanter. I cannot exacerbate any iliac crest pain but with palpation. He does walk with a noticeable antalgic gait. Right knee exam continues to be benign. No pain with palpation over the joint line and no intraarticular effusion. Neurologic: Gross sensation is intact across both lower extremities by soft to uch. Peripheral pulses are 2+. Results & Data Results & Data ([facility]) Diagnostic Findings Radiographic imaging previously obtained of the right hip shows periarticular osteophytes, subchondral sclerosis, and joint space narrowing. Cam lesion is present.
--- NOTE | 2020-09-29 06:23 | History & Physical Bridge Note ---
Date of Service September 29, 2020 History & Physical Bridge Note I have examined the patient, reviewed the History & Physical and in the interval since the performance of the History & Physical I have noted the following changes of clinical significance:consent obtained/site verified/covid screen negative. no changes noted
[~2020-09-29 06:30] MED LIST: BUPIVACAINE 0.5 % 5 MG/1 ML PF 10ML VIAL ONE; LR 15ML/HR IV SCH; LR 500ML BOLUS, THEN 15ML/HR IV SCH; LR 60ML/HR IV SCH; ROPIVACAINE 0.5% HCL/PF 150 MG, BUPIVACAINE 0.75% MPF 20 ML, EPINEPHrine 0.15 MG, Ketor... INFIL SCH; TRANEXAMIC ACID 1,000 MG **IV Intra-op IV SCH; TRANEXAMIC ACID 1,000 MG x 1 **For Topical Use TOP SCH; ceFAZolin 2000MG 2,000 MG/15 ML SYR IV SCH
[2020-09-29] MEDS ORDERED: fentaNYL citrate 100 MCG/2 ML VIAL ONE (07:25)
[2020-09-29] MEDS ORDERED: MIDAZOLAM HCL 1 MG/ML 2ML VIAL ONE ×2 (07:25→09:27)
[2020-09-29] MEDS ORDERED: PROPOFOL IV EMULSION 10 MG/ML 20 ML VIAL IV ONE (07:25)
[2020-09-29] MEDS ORDERED: LIDOCAINE 2% 2 ML VIAL/AMP(20MG/ML) INFIL ONE (07:25)
[2020-09-29] MEDS ORDERED: ePHEDrine sulfate 50 MG/ML AMP IV PRN (08:24)
[2020-09-29] MEDS ORDERED: fentaNYL citrate 100 MCG/2 ML VIAL IV PRN (08:24)
[2020-09-29] MEDS ORDERED: HYDROmorphone INJ 2 MG/ML SYR/VIAL IV PRN (08:24)
[2020-09-29] MEDS ORDERED: ONDANSETRON INJ 2 MG/ML 2 ML VIAL IV PRN ×2 (08:24→12:49)
[2020-09-29] MEDS ORDERED: ATROPINE SULFATE 0.1 MG/ML 10ML SYR IV PRN (08:24)
[2020-09-29] MEDS ORDERED: ORTHO JOINT ANESTHETIC ONE (09:00)
[2020-09-29] MEDS ORDERED: ceFAZolin 1000MG 1,000 MG/7.5 ML SYR IV ONE (09:50)
[2020-09-29] MEDS ORDERED: ceFAZolin 2000MG 2,000 MG/15 ML SYR IV ONE (10:10)
[2020-09-29] MEDS ORDERED: ePHEDrine sulfate 50 MG/ML SYR ONE (10:41)
--- NOTE | 2020-09-29 10:46 | Post Operative Brief Note ---
Immediate Post Op Note v1 Date of Surgery September 29, 2020 Pre & Post Diagnosis Operation Date: 09/29/20 08:50 Pre-Op Diagnosis: Right Hip Degenerative Joint Disease Post-Op Diagnosis: Right Hip Degenerative Joint Disease I identified the patient and participated in the time-out.: Yes Procedure Operation Date: 09/29/20 08:50 Actual Procedures p Right Total Hip Arthroplasty--Uncemented(Right) - Lc Agarwal MD Surgeon Lc Agarwal MD [facility] Blood Loss 100 Findings Consistent with Post-Op Diagnosis
--- NOTE | 2020-09-29 11:00 | Operative Report ---
Post Operative Report Pre & Post Diagnosis Operation Date: 09/29/20 08:50 Pre-Op Diagnosis: Right Hip Degenerative Joint Disease Post-Op Diagnosis: Right Hip Degenerative Joint Disease I identified the patient and participated in the time-out.: Yes Procedure Operation Date: 09/29/20 08:50 Actual Procedures p Right Total Hip Arthroplasty--Uncemented(Right) - Lc Agarwal MD Surgeon VAZQUEZ Agarwal MD Supervisor Post Wave Rodrigue EDUARDO Estimated Blood Loss 100 Findings Consistent with Post-Op Diagnosis Specimens see operative report Drains none Complications none Disposition Accompanied Patient To Recovery: Yes Disposition: Recovery Room Indications This 60-year-old male presented to the office with complaints of intractable right hip pain. He had tried conservative care measures without improvement. Patient elected to proceed with surgical intervention after being educated about potential risks and outcomes. Preoperative imaging was obtained. Description of Procedure Patient was administered a spinal anesthetic and then taken to the operating room where he was given sedation. He was prepped and draped in the usual sterile fashion. Please see Dr. Agarwal's operative report for specifics of the procedure. I was present for the entire case from initial patient positioning through final wound closure. Assistance was provided in tissue retraction, hemostasis, trial implant placement, final implant placement, and final wound closure. Patient was taken to the recovery room in satisfactory condition. I attest to the content of the Intraoperative Record and any orders documented therein. Any exceptions are noted below.
[2020-09-29] MEDS ORDERED: VANCOMYCIN HCL 1,750 MG in SODIUM CHLORIDE 0.9% 500 ML IV ONE (11:15)
[2020-09-29] MEDS ORDERED: VANCOMYCIN HCL 1,750 MG in SODIUM CHLORIDE 0.9% 250 ML IV SCH (11:15)
--- NOTE | 2020-09-29 11:15 | Operative Report (OR) ---
DATE OF OPERATION: 09/29/2020 SURGEON: Lc Agarwal MD. COSTUME SHOP MANAGER: Rasheed Husain PA-C. No resident or fellow available. PREOPERATIVE DIAGNOSES: Osteoarthritis, labral tear, impingement syndrome, right hip. POSTOPERATIVE DIAGNOSES: Osteoarthritis, labral tear, impingement syndrome, right hip. OPERATION PERFORMED: Noncemented right total hip replacement. PERIOPERATIVE SITUATION: Medically cleared 60-year-old male who has had intractable hip and groin pain. Preoperative assessment was consistent with labral disease, degenerative disease and Cam impingement; he also has a dysplastic acetabulum. He wants to proceed with surgical treatment since he has so much discomfort. He knows that arthroscopic treatment would not reliably help him, so he has consented to a total hip replacement. SUMMARY OF IMPLANTS: Size 50 acetabular shell sector cup hole eliminator, 32 x 50 neutral liner, 30 mm 6.5 screw, 6 high offset Tri-Lock and a 32+5 ceramic head. BLOOD LOSS: Roughly 100 mL. CRYSTALLOID: Per anesthesia. DESCRIPTION OF PROCEDURE: The patient was appropriately identified, site verified, consent verified. Antibiotics confirmed as being given. The right lower extremity was prepped and draped in usual routine fashion with the patient in the left lateral decubitus position. Posterior approach to the hip was made. He is a large man. Appropriate incision made. Full thickness flaps raised. The gluteus juancho and IT band fascia split with care taken to place a Charnley retractor and protect the sciatic nerve. Short external rotators were identified, released and preserved. The capsule was T'd and preserved. The hip was then dislocated. The femoral head was then resected. There was exuberant synovitis. There was an involuted labrum with tearing, particularly on the anterior superior half. This was all excised. There was a chondral labral disease at the labral chondral junction consistent with his degenerative change. The femoral head had a large Cam lesion on it. Once everything was exposed well after the femoral neck was resected and the hip dislocated, serial reaming carried up to a 50 and a 50 cup impacted into position. This matched the opposite side. A 6.5 x 30 screw was then placed with excellent purchase. Trial liner was then seated. It was a neutral liner. Femur was then flexed and internally rotated and delivered into the wound and serial broaching carried up to a size 6. This neck cut was left intentionally long to try to minimize the transition from ceramic to Vader chrome head if we needed to go +9 or longer. Once that neck was resected, appropriate serial broaching reaming carried up to a size 6. The hip was reduced, it was stable in all planes with the +5 head and the neck. Leg lengths were relatively equal. The hip was then dislocated. All remaining trial elements were removed. TXA placed for 3 minutes. The wound was then irrigated with Betadine and Pulsavac and then the permanent hole eliminator seated, the permanent liner seated, the permanent stem and head seated. The hip reduced. It was stable in all planes. Leg lengths were good. The wound was then irrigated one final time with Pulsavac and closed with #2 Vicryl for the capsule and short external rotators and the gluteus juancho and IT band fascia. Orthomix was then injected in the subcutaneous tissue and the area closed with another layer of #2 Vicryl, then 2-0 Vicryl and stainless steel clips. Appropriate dressing was applied. The patient was transferred to recovery room in satisfactory condition having tolerated the procedure well. It is hoped he will do as well with this side as he did with the other. A 23-hour admit per protocol. Discharge tomorrow if he does well. DVT prophylaxis per protocol. I attest to the content of the Intraoperative Record and any orders documented therein. Any exceptions are noted below. OLIVIER
--- NOTE | 2020-09-29 11:21 | XRay Report ---
XR pelvis 1-2V routine CLINICAL HISTORY: Postop total hip arthroplasty COMPARISON: 03/01/2020 DISCUSSION: A total left hip arthroplasty is again evident. There is now evidence for a total right h ip arthroplasty. The femoral and acetabular components appear well seated. There is no dislocation. T here is gas within the soft tissues consistent with recent surgery. There are overlying skin argelia. IMPRESSION: Postsurgical changes of a total right hip arthroplasty. ACT 112: Negative or not required by law. Electronically signed by: Mil Avila M.D. 09/29/2020 11:19 AM
--- NOTE | 2020-09-29 11:33 | Progress Notes ---
DATE: 09/29/2020 SUBJECTIVE: Followup of postop check, status post right hip replacement. The patient is doing well. He has no chest pain, shortness of breath, fever, chills, nausea, vomiting or headache. OBJECTIVE: Vital signs are stable. He is afebrile. Neurovascular check is limited by his spinal, which is starting to wear off. Postop x-rays look excellent. ASSESSMENT: Doing well status post right total hip replacement. Continue with postop care pathway.
--- NOTE | 2020-09-29 11:53 | Anesthesiology Progress Note ---
Date of Service September 29, 2020 Anesthesia Post Procedure Vital Signs Vital Signs: Temp Pulse Pulse Resp BP BP Pulse Ox 09/29/20 11:30 36.2 C L 52 L 14 113/65 99 09/29/20 11:20 57 L 16 105/62 99 09/29/20 11:10 56 L 20 91/66 L 100 09/29/20 11:00 36.7 C 58 L 20 94/59 L 92 09/29/20 07:00 36.8 C 62 20 140/90 98 Pain Intensity Right Hip: Pain Intensity: 7 Transfer of Care Handoff Completed per policy Notes Mental Status: alert / awake / arousable and participated in evaluation Patient Amnestic to Procedure: Yes Nausea / Vomiting: adequately controlled Pain: adequately controlled Airway Patency, RR, SpO2: stable & adequate BP & HR: stable & adequate Hydration State: stable & adequate Anesthetic Complications: no major complications apparent and Pt Satisfied with anesthetic care
--- NOTE | 2020-09-29 12:32 | Discharge Summary (DS) ---
DATE OF POTENTIAL DISCHARGE: 09/30/2020. CHIEF COMPLAINT: Right hip pain. HISTORY OF PRESENT ILLNESS: The patient underwent elective right total hip replacement. He had early to moderate arthritis with significant labral disease, hip dysplasia, intractable pain. He had a similar procedure done on the opposite side and wanted to have this one done. He knows that there are no guarantees given. His hospital course to date has been uneventful. His spinal controlled his pain at surgery well. His postoperative x-rays look excellent. PAST MEDICAL HISTORY: Remarkable for heart murmur, hypertension, hypercholesterolemia, DVT 20 years ago, osteoarthritis, back pain, neck pain, obesity, kidney stones, GERD. PAST SURGICAL HISTORY: Remarkable for ankle surgery, kidney stone extraction, neck surgery, lumbar back surgery, left total hip arthroplasty, cataract surgery. SOCIAL HISTORY: Reveals no alcohol. Uses smokeless tobacco. Single, unemployed. Positive marijuana use. FAMILY HISTORY: Significant for heart disease and stroke. ALLERGIES: None. PREADMISSION MEDICATIONS: Include p.r.n. Percocet, amoxicillin prior to dental visits, atenolol 50 mg daily, baclofen 10 mg p.o. t.i.d., omeprazole 40 mg daily, fenofibrate 200 mg daily. REVIEW OF SYSTEMS: Noncontributory. Again, postoperative x-rays look excellent. ASSESSMENT: Doing well status post right hip replacement. Discharge to home tomorrow with home services. Deep vein thrombosis prophylaxis with Coumadin. Keep INR 1.8-2.2.
[2020-09-29] MEDS ORDERED: ALUMINUM/MAGNESIUM SUSP 30 ML UDC PO PRN (12:49)
[2020-09-29] MEDS ORDERED: SODIUM CHLORIDE 0.9% 1000ML 1,000 ML IV SCH (12:49)
[2020-09-29] MEDS ORDERED: diphenhydrAMINE 50 MG/ML VIAL IV PRN (12:49)
[2020-09-29] MEDS ORDERED: HYDROmorphone INJ 0.5 MG/0.5 ML SYR IV PRN (12:49)
[2020-09-29] MEDS ORDERED: MAGNESIUM HYDROXIDE SUSP 30 ML UDC PO PRN (12:49)
[2020-09-29] MEDS ORDERED: TAMSULOSIN HCL 0.4 MG CAP PO PRN (12:49)
[2020-09-29] MEDS ORDERED: NALOXONE HCL 0.4 MG/1 ML VIAL/CARP IV PRN (12:49)
[2020-09-29] MEDS ORDERED: BACLOFEN 10 MG TAB PO PRN (12:49)
[2020-09-29] MEDS ORDERED: bisacodyL 10 MG SUPP PR PRN (12:49)
[2020-09-29] MEDS ORDERED: METOCLOPRAMIDE HCL INJ 5 MG/ML 2 ML VIAL IV PRN (12:49)
[2020-09-29] MEDS: KETOROLAC 30 MG/ML VIAL IV SCH ×2 (13:38→18:16)
[2020-09-29] MEDS ORDERED: ORTHO WARFARIN NOMOGRAM SCH (14:00)
[2020-09-29] MEDS: ACETAMINOPHEN 500 MG TAB PO SCH ×2 (14:23→21:43)
[2020-09-29] MEDS ORDERED: WARFARIN SOD 5 MG TAB PO ONE (15:00)
[2020-09-29] MEDS: oxyCODONE HCL IR 5 MG TAB (IMMEDIATE RELEASE) PO PRN ×2 (16:49→23:29)
[2020-09-29] MEDS: ASCORBIC ACID 500 MG TAB PO SCH (18:15)
[2020-09-29] MEDS: FERROUS GLUCONATE 324 MG TAB PO SCH (18:15)
[2020-09-29] MEDS: ceFAZolin 2000MG 2,000 MG/15 ML SYR IV SCH (18:22)
[2020-09-29] MEDS ORDERED: SENNA 8.6 MG TAB PO SCH (21:00)
[2020-09-29] MEDS: DOCUSATE SODIUM 100 MG CAP PO SCH (21:42)
[2020-09-29] MEDS: PSYLLIUM 58.6% POWDER PACKET PO SCH (21:43)
[2020-09-30] MEDS: ceFAZolin 2000MG 2,000 MG/15 ML SYR IV SCH (01:05)
[2020-09-30] MEDS: KETOROLAC 30 MG/ML VIAL IV SCH ×2 (01:29→06:14)
[2020-09-30 05:35] LABS: Basophils # (auto) 0.02 K/uL (0-0.2); Basophils % (auto) 0.2 %; Eosinophils # (auto) 0.18 K/uL (0-0.5); Eosinophils % (auto) 2.1 %; Hematocrit (blood only) 35.5 % (42-52); Hemoglobin 12.3 g/dL (14.0-18.0); Immature Granulocytes # (auto) 0.02 K/uL (0.00-0.02); Immature Granulocytes % (auto) 0.2 %; Lymphocytes # (auto) 1.16 K/uL (1.2-3.4); Lymphocytes % (auto) 13.5 %; Mean Corpuscular Hemoglobin 29.1 pg (25-34); Mean Corpuscular Hgb Conc 34.6 g/dL (32-36); Mean Corpuscular Volume 83.9 fL (80-100); Mean Platelet Volume 11.7 fL (7.4-10.4); Monocytes # (auto) 1.07 K/uL (0.11-0.59); Monocytes % (auto) 12.4 %; Neutrophils # (auto) 6.17 K/uL (1.4-6.5); Neutrophils % (auto) 71.6 %; Platelet Count 147 K/uL (130-400); RDW Coefficient of Variation 14.3 % (11.5-14.5); RDW Standard Deviation 43.9 fL (36.4-46.3); Red Blood Count 4.23 M/uL (4.7-6.1); White Blood Count 8.62 K/uL (4.8-10.8)
[2020-09-30 05:47] LABS: INR 1.1 (0.9-1.1); Prothrombin Time 11.3 Seconds (9.0-12.0)
[2020-09-30 06:01] LABS: BUN Creatinine Ratio 10.3 (10-20); Calcium 8.5 mg/dl (8.5-10.1); Creatinine Clr Calc Pharmacy 106.8 ml/min; Est GFR (African American) 93.5 ml/min; Est GFR (Non-African American) 80.6 ml/min; Potassium 3.9 mmol/L (3.5-5.1)
[2020-09-30] MEDS: ACETAMINOPHEN 500 MG TAB PO SCH (06:14)
[2020-09-30] MEDS ORDERED: ORTHO WARFARIN NOMOGRAM SCH (07:33)
[2020-09-30] MEDS ORDERED: dexAMETHasone 10 MG in SYRINGE 0 ML IV SCH (08:00)
--- NOTE | 2020-09-30 08:49 | Orthopedic Progress Note ---
Date of Service September 30, 2020 Assessment & Plan (1) Status post right hip replacement: Patient's dressing was changed today by me. New pressure dressing was applied. This will stay in place until Sunday, at which time it may be changed by home nursing if there is soiling. Importance of maintaining a pressure dressing on the area was discussed with the patient. He is aware. Patient has Percocet at home. New prescription for Coumadin was provided. Written discharge instructions were also provided. Follow-up in the office on October 14 as scheduled for staple removal. Importance of following total hip precautions and sleeping with a pillow between his legs was discussed. Discharge to home today after PT/OT with home health services. Admission and Anticipated Discharge Date Admission Date: September 29, 2020 Subjective Patient is seen in his room this morning. States he did fairly well overnight. Currently has minimal pain. He has been ambulatory. He is currently eating breakfast. Alert and conversive. Feels ready for discharge to home. He denies any chest pain, shortness of breath, nausea, vomiting, or abdominal pain. Mild right hip pain. Review of Systems Review of Systems: Unchanged from yesterday. Physical Exam Physical Exam: General: Well-developed, well-nourished, middle-aged male, in no acute distress. Sitting in his chair. Alert and oriented. Conversive. Skin: Warm dry with good turgor. Postsurgical dressing is in place on the right hip. There is no bleed through. Upon removal, mild drainage on the dressings. He has no active bleeding. Kim are intact. Wound edges are well approximated. Expected postoperative edema. No ecchymosis. Musculoskeletal: Patient has supple motion of his right hip. Rises easily from his chair. Ambulates well in the room with her walker. Intact motor function to the right knee, ankle, and toes. Neurologic: Gross sensation is intact across the right leg by soft touch. Results & Data ([facility]) Vital Signs (Past 12 Hours) Vital Signs Temp Pulse Resp BP BP Pulse Ox 09/30/20 07:12 36.9 C 76 20 116/75 96 09/30/20 02:38 37.2 C 79 16 114/69 95 09/29/20 21:47 37.2 C 71 16 125/72 97 Laboratory Results WBCs 8.6, hemoglobin 12.3, hematocrit 35.5. INR is 1.1. PRP is unremarkable. Glucose 100.
--- NOTE | 2020-09-30 08:52 | Progress Notes ---
DATE: 09/30/2020 SUBJECTIVE: Postop check, status post right total hip replacement. The patient is doing well. He is up and closed. He is doing well. He denies any real significant pain, just feels sore. Denies any chest pain, shortness of breath, fever, chills, nausea, vomiting or headache. VITAL SIGNS: Stable. He is afebrile. LABORATORY WORK: Hematocrit stable at 35.3. Electrolytes are good. INR is 1.1. PHYSICAL EXAMINATION: Reveals femoral sciatic nerve to be normal. Calves nontender. Wound dressing clean, dry and intact. ASSESSMENT: Doing well. Discharge to home today. Coumadin dose per nomogram.
[2020-09-30] MEDS: FERROUS GLUCONATE 324 MG TAB PO SCH (08:56)
[2020-09-30] MEDS: ASCORBIC ACID 500 MG TAB PO SCH (08:56)
[2020-09-30] MEDS: PSYLLIUM 58.6% POWDER PACKET PO SCH (08:57)
[2020-09-30] MEDS: DOCUSATE SODIUM 100 MG CAP PO SCH (08:57)
[2020-09-30] MEDS ORDERED: FENOFIBRATE NANOCRYSTALLIZED 145 MG TABLET PO SCH (09:00)
[2020-09-30] MEDS ORDERED: ATENOLOL 50 MG TABLET PO SCH (09:00)
[2020-09-30] MEDS ORDERED: PANTOprazole 40 MG TAB PO SCH (09:00)
[2020-09-30] MEDS ORDERED: MULTIVITAMIN TAB PO SCH (09:00)
== END 2020-09-30 11:14 | disposition home health service (06) ==
LOC: 3E 06:30 → ASU 06:30